=== PATIENT | male | born 2005 | race Caucasian/White ===

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

== ENCOUNTER 2023-07-04 21:31 | Emergency (ER) | payer MEDICAID, SELFPAY ==
[2023-07-04 21:35] VITALS: BP 150/84; PULSE 90; RESP 16; TEMP 37.1; O2SAT 98
[2023-07-04 21:38] VITALS: RESP 18
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
[2023-07-04 22:00] LABS: BE (Venous) 3 mmol/L (-2-3); HCO3 (Venous) 29 mmol/L (23-28); O2 Sat (Venous) 87 %; TCO2 (Venous) 25 mmol/L (24-29); pCO2 (Venous) 50 mmHg (41-51); pH (Venous) 7.37 (7.31-7.41); pO2 (Venous) 50 mmHg
[2023-07-04] MEDS: Ondansetron 4 MG/2 ML VIAL IVP (22:01)
[2023-07-04] MEDS: Normal Saline 1,000 ML 1000 ML IV (22:09)
[2023-07-04 22:17] LABS: ALT 22 U/L (16-63); AST 18 U/L (15-37); Albumin 4.6 g/dL (3.4-5.0); Alkaline Phosphatase 95 U/L (46-116); Anion Gap 9.2 mmol/L (3-11); BUN 14 mg/dL (7-18); Bilirubin, Total 0.5 mg/dL (0.2-1.0); CO2 28.8 mmol/L (21.0-32.0); CREATININE 1.1 mg/dL (0.70-1.30); Calcium 9.5 mg/dL (8.5-10.1); Chloride 103 mmol/L (98-107); Estimated GFR 98.56 (mL/min/1.73m2); Glucose 103 mg/dL (74-106); Potassium 3.5 mmol/L (3.5-5.1); Sodium 141 mmol/L (136-145); Total Protein 8.3 g/dL (6.4-8.2)
[2023-07-04 22:19] LABS: ETHANOL BLOOD < 3.0 mg/dL (<10)
[2023-07-04 23:13] VITALS: BP 119/56; PULSE 79; RESP 16; TEMP 36.7; O2SAT 97
[2023-07-05 19:36] LABS: Osmolality Serum 287 mOsm/kg (275-295)
== END 2023-07-04 23:12 | disposition home or self-care (01) ==
PROVIDERS: Emergency Provider Emergency Medicine
DX: T23.552A Corrosion of first degree of left palm, initial encounter (principal); T23.561A Corrosion of first degree of back of right hand, initial encounter; T20.55XA Corrosion of first degree of scalp [any part], initial encounter; T65.91XA Toxic effect of unspecified substance, accidental (unintentional), initial encounter; T32.0 Corrosions involving less than 10% of body surface; Y93.89 Activity, other specified; Y92.89 Other specified places as the place of occurrence of the external cause; Y99.9 Unspecified external cause status
CPT/HCPCS: 80053; 82805; 96361; 96374; 99284; 80320; 83930; 99283; J2405

== ENCOUNTER 2023-12-02 12:15 | Day surgery (SDC) | payer OTHER, SELFPAY ==
[2023-12-02] VITALS (9 sets, daily range): BP systolic 102–140; BP diastolic 34–78; PULSE 64–93; RESP 16–21; TEMP 36.6–37.1; O2SAT 97–99; BMI 23.6
[2023-12-02] MEDS: Lactated Ringers 1,000 ML 80 ML IV (12:42)
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
[2023-12-02] MEDS: ceFAZolin 2 GM/50 ML BAG IVPB (15:09)
[2023-12-02] MEDS: Bupivacaine 0.5% Pres-Free 30 ML VIAL (15:27)
--- NOTE | 2023-12-02 15:54 | W.PM.DSUDISC ---
Date of service: 12/02/23 Time of Service: 15:54 Discharge Plan Disposition Condition: Stable Discharge Details Reason For Visit: circumcision Attending Provider: Sriniavs Yeung Primary Care Provider: Unknown,Unknown Home Meds and New Rx's Prescriptions: New tramadol 50 mg tablet 50 mg PO Q6H PRNQty: 12 0RF Rx Instructions: may use with tylenol and NSAIDs Discharge Instructions Additional Instructions: may use tylenol and ibuprofen for pain a prescription for tramadol has been sent to the pharmacy - the tramadol can be used for breakthrough pain if dressing is still present tomorrow, get dressing wet and remove dressing - no need to replace dressing followup for wound check 1 to 2 weeks Activity:: no lifting over 10 pounds for 1 week Remove Dressings/Wound Care:: 24 hours Shower/Bathe:: 24 hours Diet:: As Tolerated DS: Diagnosis Discharge Diagnosis (1) H/O balanitis: Status: Acute
--- NOTE | 2023-12-02 16:03 | W.BRIEF ---
Date of service: 12/02/23 Time of Service: 16:03 Brief Operative Note Procedure/Pre & Post Op Diagnoses/Participant Administrator: Operation Date: 12/02/23 14:40 Actual Procedures p Circumcision(Not Applicable) - Srinivas Yeung MD Pre-Op Diagnosis: BALANITIS Post-Op Diagnosis: BALANITIS Anesthesia Anesthesia Type: General LMA/ETT Estimated Blood Loss Output, Estimated Blood Loss 10 Amount Specimen/Culture Specimen(s): none Complications Complications: None
--- NOTE | 2023-12-02 16:04 | W.PM.OP ---
Date of service: 12/02/23 Time of Service: 16:15 Operative Note Operative Note DATE OF PROCEDURE: 12/02/23 PRE-OP DIAGNOSIS: Balanitis POST-OP DIAGNOSIS: same PROCEDURE: circumcision SURGEON: Srinivas Yeung ANESTHESIA TYPE: General LMA/ETT Refer to Anesthesia Record ESTIMATED BLOOD LOSS: 10 PATHOLOGY: none sent COMPLICATIONS: None Patient was transported to: PACU Patient's condition: stable Indications: This is a 18-year-old gentleman who has had recurrent episodes of balanitis. He presents for circumcision. Procedure Description: The patient was brought to the operating room on 12/02/2023. He was given preoperative IV antibiotics. After successful induction of general anesthesia, he was placed in the supine position. His genitalia was prepped and draped. A circumferential incision was made on the outer aspect of the foreskin. The outer incision was made at the level of the coronal sulcus. A second circumferential incision was made on the inner aspect of the foreskin at about 2 cm below the coronal sulcus. The 2 incisions were connected and the redundant skin was removed. Any bleeding points that were encountered were cauterized with the Bovie. The skin edges were then reapproximated using simple interrupted 4-0 chromic sutures. A circumferential nerve block was performed using quarter percent Marcaine without epinephrine. A dorsal penile nerve block was performed with the same quarter percent Marcaine. At the completion of the procedure, hemostasis appeared excellent. A circumferential Xeroform gauze was applied to the incision site. The patient tolerated the procedure well with no complications.
--- NOTE | 2023-12-02 16:31 | W.ANESPOSTOP ---
Postoperative Evaluation Date, Time and Location Date Performed: 12/02/23 Time Performed: 16:31 Patient Location: PACU Vital Signs Most Recent Imported Vital Signs: Most Recent Vital Signs Temp Pulse Resp BP Pulse Ox 37.0 C 87 18 104/66 97 12/02/23 16:24 12/02/23 16:24 12/02/23 16:24 12/02/23 16:24 12/02/23 16:24 Pain Score Most Recent Pain Score: Most Recent Pain Score Pain Level 0 12/02/23 16:24 Assessment Mental Status: Awake (Alert & Oriented to Patient Baseline) Airway and Respiratory Function: Patent airway with normal (patient baseline) respiratory exam Cardiovascular Function: Hemodynamically Stable Hydration Status: Adequately Hydrated Nausea & Vomiting: No Nausea or Vomiting Pain: Pt. Denies Any Pain Peripheral Nerve Block: Patient did not receive a nerve block
== END 2023-12-02 17:25 | disposition home or self-care (01) ==
PROVIDERS: Visit Provider Urology
PROC: (CPT 54150; principal; 2023-12-02 14:30)
DX: Z87.438 Personal history of other diseases of male genital organs (principal)
CPT/HCPCS: 54150; J0665; J0690; J1100; J1885; J2001; J2405; J2704; J3010

== ENCOUNTER 2024-02-21 05:28 | Emergency (ER) | payer OTHER, SELFPAY ==
[2024-02-21 05:31] VITALS: BP 140/73; PULSE 79; RESP 16; O2SAT 99
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
[2024-02-21 05:54] VITALS: BP 140/73; PULSE 79; RESP 16; TEMP 36.4; O2SAT 99
[2024-02-21] MEDS: Tetracaine 0.5% 4 ML BTL (05:55)
[2024-02-21] MEDS: Fluorescein STRIPS 100/BOX 1 MG (05:55)
== END 2024-02-21 05:58 | disposition home or self-care (01) ==
LOC: ER 06:07
PROVIDERS: Emergency Provider Emergency Medicine Emergency Medical Services
DX: T15.81XA Foreign body in other and multiple parts of external eye, right eye, initial encounter (principal); S00.251A Superficial foreign body of right eyelid and periocular area, initial encounter; W44.F9XA Other object of natural or organic material, entering into or through a natural orifice, initial encounter

== ENCOUNTER 2025-06-15 10:51 | Emergency (ER) | payer OTHER, SELFPAY ==
[2025-06-15 10:54] VITALS: BP 151/91; PULSE 92; RESP 12; TEMP 36.8; O2SAT 97
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
[2025-06-15] MEDS: Ibuprofen 600 MG TAB PO (12:28)
[2025-06-15] MEDS: Bacitracin 1 PACKET TP (12:28)
[2025-06-15] MEDS: Acetaminophen 500 MG TAB 1000 MG PO (12:28)
[2025-06-15 12:33] VITALS: BP 133/68; PULSE 84; RESP 18; O2SAT 98
== END 2025-06-15 12:33 | disposition home or self-care (01) ==
PROVIDERS: Emergency Provider Physician Assistant
DX: T54.2X1A Toxic effect of corrosive acids and acid-like substances, accidental (unintentional), initial encounter (principal); M79.671 Pain in right foot; M79.672 Pain in left foot; Y99.0 Civilian activity done for income or pay; Y92.69 Other specified industrial and construction area as the place of occurrence of the external cause
CPT/HCPCS: 99283 ×2